=== PATIENT | female | born 1945 ===

== ENCOUNTER → 2017-07-19 | Day surgery (SDC) | payer OTHER ==
[~2017-07-19] MED LIST: DIOVAN HCT 3201 EAC1 PO; LIPITOR20 MG PO; METFORMIN HCL500 MG PO; SYNTHROID125 MCG PO; TOPROL XL25 MG PO; VITAMIN D250000 UNIT PO
== END | disposition home or self-care (01) ==
LOC: ADM 07-18 13:00 → CIR.AMB 05:35
DX: N84.0 Polyp of corpus uteri (principal)